=== PATIENT | female | born 1945 | race Caucasian/White ===

== ENCOUNTER 2021-04-28 02:25 | Emergency (ER) | payer MEDICARE ==
[~2021-04-28] VITALS: Ht 165.1 cm; Wt 68.0 kg
--- NOTE | 2021-04-28 02:35 | NUR ---
PATIENT [id number] FROM [facility] C/O TRIP AND FALL ON CARPETED HALLWAY. PATIENT DENIES LOC, C/O RIGHT SHOULDER PAIN. PATIENT IS A/O X 2, RR EVEN AND UNLABORED, NO SOB NOTED, PATIENT CONNECTED TO CARDIAC MONIOTR AND POX.
[2021-04-28] MEDS ORDERED: IBUPROFEN 600 MG TABLET ONE (02:53)
[2021-04-28] MEDS ORDERED: IBUPROFEN 200 MG TABLET ONE (02:53)
--- NOTE | 2021-04-28 02:58 | NUR ---
taken to ct
[2021-04-28] MEDS ORDERED: IBUPROFEN 400 MG TABLET PO ONE (03:00)
--- NOTE | 2021-04-28 03:41 | NUR ---
KARL, DAUGHTER [phone]
--- NOTE | 2021-04-28 04:28 | NUR ---
Patient discharged to home in stable condition. Written and verbal after care instructions given. Patient/daugther verbalizes understanding of instruction.
[2021-04-28 04:51] VITALS: BP 119/57
== END 2021-04-28 04:29 | disposition home or self-care (01) ==
LOC: ER 02:31
DX: S43.491A Other sprain of right shoulder joint, initial encounter (principal); G30.9 Alzheimer's disease, unspecified; F02.80 Dementia in other diseases classified elsewhere, unspecified severity, without behavioral disturbance, psychotic disturbance, mood disturbance, and anxiety; I10 Essential (primary) hypertension; E78.5 Hyperlipidemia, unspecified; W01.0XXA Fall on same level from slipping, tripping and stumbling without subsequent striking against object, initial encounter; Y93.89 Activity, other specified; Y92.89 Other specified places as the place of occurrence of the external cause; Y99.8 Other external cause status
CPT/HCPCS: 70450-TC; 72125-TC; 73030-TC

== ENCOUNTER 2021-12-19 12:51 | Emergency (ER) | payer MEDICARE, OTHER ==
[~2021-12-19] VITALS: Ht 165.1 cm; Wt 70.8 kg
--- NOTE | 2021-12-19 13:30 | NUR ---
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 On room air, breathing evenyl and unlabored. Kept comfortable, will continue to monitor accordingly.
[2021-12-19] MEDS ORDERED: CHOL100043 PO (13:37)
[2021-12-19] MEDS ORDERED: ACET325T53 PO (13:37)
[2021-12-19] MEDS ORDERED: MAGN400O6 PO (13:37)
[2021-12-19] MEDS ORDERED: LEVO112T7 PO (13:37)
[2021-12-19] MEDS ORDERED: MAG30ORA PO (13:37)
[2021-12-19] MEDS ORDERED: TRAZ-252 PO (13:37)
[2021-12-19] MEDS ORDERED: CYAN-51 PO (13:37)
[2021-12-19] MEDS ORDERED: BUPR-54 PO (13:37)
[2021-12-19] MEDS ORDERED: CLON0.5T4 PO (13:37)
[2021-12-19] MEDS ORDERED: ATOR10TA PO (13:37)
[2021-12-19] MEDS ORDERED: AMLO-213 PO (13:37)
[2021-12-19] MEDS ORDERED: ACET-868 PO (13:37)
[2021-12-19] MEDS ORDERED: TRAM50TA2 PO (13:37)
[2021-12-19] MEDS ORDERED: LORA-259 PO (13:37)
[2021-12-19] MEDS ORDERED: FLUO40CA49 PO (13:37)
[2021-12-19] MEDS ORDERED: OMEP20CA15 PO (13:37)
[2021-12-19] MEDS ORDERED: VALS320T16 PO (13:37)
[2021-12-19] MEDS ORDERED: LOPE-195 PO (13:37)
[2021-12-19] MEDS ORDERED: FOLI0.4T6 PO (13:37)
[2021-12-19] MEDS ORDERED: MEMA1CAP3 PO (13:37)
[2021-12-19] MEDS ORDERED: LIDO1ADH71 TP (13:37)
[2021-12-19 14:29] LABS: BILIRUBIN,URINE NEGATIVE (NEGATIVE); COLOR,URINE YELLOW (YELLOW); LEUKOCYTE ESTERASE ,URINE SMALL (NEGATIVE); NITRITE, URINE POSITIVE (NEGATIVE); PROTEIN,URINE NEGATIVE (NEGATIVE); UGLUCOSE NEGATIVE (NEGATIVE); UROBILINOGEN,URINE 0.2 EU/dL (0.2)
[2021-12-19] MEDS ORDERED: IV NS 0.9% 1,000 ML BAG IV ONE (14:30)
[2021-12-19 14:59] LABS: BASOPHILS % (AUTO) 0.4 % (0.0-2.0); EOSINOPHILS % (AUTO) 2.5 % (0.0-6.0); HEMATOCRIT 39 % (33-45); HEMOGLOBIN 13.2 g/dL (11.5-14.8); LYMPHOCYTES # (AUTO) 1.2 K/uL (0.8-4.8); LYMPHOCYTES % (AUTO) 18.8 % (20.0-44.0); MEAN CORPUSCULAR HGB CONC 34 g/dl (31.0-36.0); MEAN CORPUSCULAR VOLUME 94 fL (82-100); MONOCYTES # (AUTO) 0.5 K/uL (0.1-1.30); MONOCYTES % (AUTO) 7.6 % (2.0-12.0); NEUTROPHILS # (AUTO) 4.5 K/uL (1.8-8.9); NEUTROPHILS % (AUTO) 70.7 % (43.0-81.0); PLATELET COUNT (AUTO) 203 K/uL (150-450); RED BLOOD CELL COUNT(AUTO) 4.14 MIL/uL (4.0-5.2); WHITE BLOOD COUNT (AUTO) 6.4 K/uL (4.3-11.0)
[2021-12-19 15:14] LABS: RBC,URINE 21-50 /HPF (0-2)
[2021-12-19 15:15] LABS: BACTERIA,URINE 3+ /HPF (None Seen); SQUAMOUS EPITHELIAL CELL,UR 0-2 /HPF (None Seen)
[2021-12-19] MEDS ORDERED: CEFTRIAXONE 1GM BAG (ER ONLY) 1 GM/50 ML PIGGYBACK IV ONE (15:30)
[2021-12-19 15:32] LABS: ALANINE AMINOTRANSFERASE 17 U/L (12-78); ALBUMIN 3.4 g/dL (3.4-5.0); ALKALINE PHOSPHATASE 76 U/L (46-116); ASPARTATE AMINOTRANSFERASE 14 U/L (15-37); BILIRUBIN,DIRECT 0.1 mg/dL (0.0-0.2); BILIRUBIN,TOTAL 0.3 mg/dL (0.2-1.0); CALCIUM, SERUM 9.1 mg/dL (8.5-10.1); CARBON DIOXIDE 27 mmol/L (21-32); CHLORIDE 104 mmol/L (98-107); CREATININE 0.8 mg/dL (0.6-1.3); GLUCOSE 95 mg/dL (74-106); POTASSIUM 3.8 mmol/L (3.5-5.1); SODIUM SERUM 137 mmol/L (136-145); TOTAL PROTEIN, SERUM 6.2 g/dL (6.4-8.2); UREA NITROGEN, BLOOD 15 mg/dL (7-18)
[2021-12-19] MEDS ORDERED: CEFTRIAXONE 1GM BAG (ER ONLY) 50 ML IV ONE (15:34)
[2021-12-19] MEDS ORDERED: CEPH500C2 PO (16:09)
[2021-12-19 16:38] VITALS: BP 113/61
--- NOTE | 2021-12-19 16:38 | NUR ---
Patient discharged to [facility] in stable condition. Written and verbal after care instructions given. Patient daughter verbalizes understanding of instruction.IV removed. Catheter intact and site benign. Pressure and 4x4 applied to site. No bleeding noted.
[2021-12-19 19:25] LABS: THYROID STIMULATING HORMONE 0.326 uIU/mL (0.358-3.74)
== END 2021-12-19 16:38 | disposition home or self-care (01) ==
LOC: ER 12:55
DX: R53.1 Weakness (principal); N39.0 Urinary tract infection, site not specified; I12.9 Hypertensive chronic kidney disease with stage 1 through stage 4 chronic kidney disease, or unspecified chronic kidney disease; N18.9 Chronic kidney disease, unspecified; E78.5 Hyperlipidemia, unspecified; E03.9 Hypothyroidism, unspecified; F32.A Depression, unspecified; Z79.899 Other long term (current) drug therapy
CPT/HCPCS: 99285; 96365; 93971; 71045; 96361; 93005; 85025; 80048; 87077; 87086; 80076; 87186; 81001; 36415; 84443; 84484; J7030; A6403; J0696

== ENCOUNTER 2022-08-03 12:37 | Inpatient (IN) | payer MEDICARE, OTHER ==
[~2022-08-03] VITALS: Ht 165.1 cm; Wt 67.6 kg
[~2022-08-03 12:37] MED LIST: ACET-868 PO; ACET325T53 PO; AMLO-213 PO; ATOR10TA PO; BUPR-54 PO; CEPH500C2 PO; CHOL100043 PO; CLON0.5T4 PO; CYAN-51 PO; FLUO40CA49 PO; FOLI0.4T6 PO; LEVO112T7 PO; LIDO1ADH71 TP; LOPE-195 PO; LORA-259 PO; MAG30ORA PO; MAGN400O6 PO; MEMA1CAP3 PO; OMEP20CA15 PO; TRAM50TA2 PO; TRAZ-252 PO; VALS320T16 PO
[2022-08-03] MEDS ORDERED: ONDANSETRON HCL/PF 4 MG/2 ML VIAL ONE (13:25)
[2022-08-03] MEDS ORDERED: ONDANSETRON HCL/PF 4 MG/2 ML VIAL IVP ONE (13:30)
[2022-08-03] MEDS ORDERED: IV NS 0.9% 500 ML BAG IV ONE (13:30)
[2022-08-03 13:56] LABS: BASOPHILS % (AUTO) 0.1 % (0.0-2.0); EOSINOPHILS % (AUTO) 0.2 % (0.0-6.0); HEMATOCRIT 49 % (33-45); HEMOGLOBIN 16.1 g/dL (11.5-14.8); LYMPHOCYTES # (AUTO) 0.4 K/uL (0.8-4.8); LYMPHOCYTES % (AUTO) 2.4 % (20.0-44.0); MEAN CORPUSCULAR HGB CONC 33 g/dl (31.0-36.0); MEAN CORPUSCULAR VOLUME 95 fL (82-100); MONOCYTES # (AUTO) 0.6 K/uL (0.1-1.30); MONOCYTES % (AUTO) 4.3 % (2.0-12.0); NEUTROPHILS # (AUTO) 13.8 K/uL (1.8-8.9); PLATELET COUNT (AUTO) 234 K/uL (150-450); RED BLOOD CELL COUNT(AUTO) 5.21 MIL/uL (4.0-5.2); WHITE BLOOD COUNT (AUTO) 14.8 K/uL (4.3-11.0)
[2022-08-03 14:03] LABS: CALCIUM, SERUM 9.9 mg/dL (8.5-10.1); CARBON DIOXIDE 27 mmol/L (21-32); CHLORIDE 105 mmol/L (98-107); GLUCOSE 158 mg/dL (74-106); SODIUM SERUM 142 mmol/L (136-145); UREA NITROGEN, BLOOD 19 mg/dL (7-18)
[2022-08-03 14:08] LABS: ALANINE AMINOTRANSFERASE 15 U/L (12-78); ALBUMIN 4.5 g/dL (3.4-5.0); ALKALINE PHOSPHATASE 85 U/L (46-116); ASPARTATE AMINOTRANSFERASE 13 U/L (15-37); BILIRUBIN,DIRECT 0.3 mg/dL (0.0-0.2); LIPASE 52 U/L (73-393)
[2022-08-03 15:34] LABS: BILIRUBIN,URINE NEGATIVE (NEGATIVE); COLOR,URINE YELLOW (YELLOW); LEUKOCYTE ESTERASE ,URINE TRACE (NEGATIVE); NITRITE, URINE NEGATIVE (NEGATIVE); PH,URINE 5.5 (5.0-8.0); PROTEIN,URINE TRACE mg/dl (NEGATIVE); UGLUCOSE NEGATIVE (NEGATIVE); UROBILINOGEN,URINE 0.2 EU/dL (0.2)
[2022-08-03 16:11] LABS: BACTERIA,URINE 2+ /HPF (None Seen); RBC,URINE 51-80 /HPF (0-2)
[2022-08-03] MEDS ORDERED: PIPERACILLIN /TAZOBACTAM 3.375 G in IV D5W 50 ML IV ONE (16:30)
[2022-08-03] MEDS ORDERED: CELE100C PO (17:27)
[2022-08-03] MEDS ORDERED: KETO30CR TOP (17:27)
[2022-08-03] MEDS ORDERED: DIVA250T PO (17:27)
[2022-08-03] MEDS ORDERED: DIVA-78 PO (17:27)
[2022-08-03] MEDS ORDERED: LOPERAMIDE HCL (2 MG CAP) 2 MG CAPSULE PO PRN (18:00)
[2022-08-03] MEDS ORDERED: MAGNESIUM HYDROXIDE 30 ML UDC PO PRN (18:00)
[2022-08-03] MEDS ORDERED: TRAMADOL HCL 50 MG TABLET PO PRN (18:00)
[2022-08-03] MEDS ORDERED: ACETAMINOPHEN 325 MG TABLET PO PRN ×2 (18:00)
[2022-08-03] MEDS ORDERED: MAG HYDROX/AL HYDROX/SIMETH 30 ML UDC PO PRN (18:00)
[2022-08-03] MEDS ORDERED: ONDANSETRON HCL/PF 4 MG/2 ML VIAL IVP PRN (18:00)
[2022-08-03] MEDS ORDERED: IV NS 0.9% 1,000 ML BAG IV ONE (18:00)
[2022-08-03] MEDS ORDERED: Z GUARD REMEDY 4 OZ OINT TP PRN (18:00)
[2022-08-03] MEDS: ENOXAPARIN SODIUM 40 MG/0.4 ML DISP.SYRIN SQ SCH (18:30)
[2022-08-03] MEDS: IV NS 0.9% 1,000 ML IV PRN (19:59)
[2022-08-03 20:00] VITALS: BP 126/67
[2022-08-03] MEDS: TRAZODONE 50 MG TABLET PO SCH (21:13)
[2022-08-03] MEDS: ATORVASTATIN 10 MG TABLET PO SCH (21:14)
[2022-08-03 22:23] VITALS: BP 126/67
[2022-08-03] MEDS: ZOSYN IVPB 2.25 G in IV D5W 50ml IV SCH (23:34)
[2022-08-04] MEDS: ZOSYN IVPB 2.25 G in IV D5W 50ml IV SCH ×4 (05:34→23:47)
[2022-08-04] MEDS: LEVOTHYROXINE SODIUM 112 MCG TABLET PO SCH (08:13)
[2022-08-04] MEDS: PANTOPRAZOLE 40 MG TABLET.DR PO SCH (08:13)
[2022-08-04 08:37] VITALS: BP 109/56
[2022-08-04] MEDS: clonazePAM 0.5 MG TABLET PO SCH ×2 (08:53→17:06)
[2022-08-04] MEDS: FLUOXETINE HCL 20 MG CAPSULE PO SCH (08:53)
[2022-08-04] MEDS: CELECOXIB 100 MG CAPSULE PO SCH ×2 (08:53→17:06)
[2022-08-04] MEDS: DIVALPROEX SODIUM 125 MG TABLET.DR PO SCH ×2 (08:53→17:06)
[2022-08-04] MEDS: LIDOCAINE 5% (PATCH) 1 EA PATCH TP SCH ×3 (08:54→14:24)
[2022-08-04] MEDS ORDERED: DIVALPROEX SODIUM 500 MG TABLET.DR PO SCH (09:00)
[2022-08-04] MEDS: AMLODIPINE BESYLATE 10 MG TABLET PO SCH (09:02)
[2022-08-04] MEDS: MEMANTINE HCL 5 MG TABLET PO SCH ×2 (09:02→17:05)
[2022-08-04] MEDS: VALSARTAN 80 MG TABLET PO SCH (09:03)
[2022-08-04 09:42] LABS: BASOPHILS % (AUTO) 0.1 % (0.0-2.0); EOSINOPHILS % (AUTO) 0.8 % (0.0-6.0); HEMATOCRIT 42 % (33-45); HEMOGLOBIN 13.9 g/dL (11.5-14.8); LYMPHOCYTES # (AUTO) 0.6 K/uL (0.8-4.8); LYMPHOCYTES % (AUTO) 8.6 % (20.0-44.0); MEAN CORPUSCULAR HGB CONC 33 g/dl (31.0-36.0); MEAN CORPUSCULAR VOLUME 95 fL (82-100); MONOCYTES # (AUTO) 0.5 K/uL (0.1-1.30); NEUTROPHILS # (AUTO) 5.6 K/uL (1.8-8.9); NEUTROPHILS % (AUTO) 83.5 % (43.0-81.0); PLATELET COUNT (AUTO) 189 K/uL (150-450); RED BLOOD CELL COUNT(AUTO) 4.42 MIL/uL (4.0-5.2); WHITE BLOOD COUNT (AUTO) 6.7 K/uL (4.3-11.0)
[2022-08-04 10:13] LABS: CALCIUM, SERUM 8.9 mg/dL (8.5-10.1); CARBON DIOXIDE 29 mmol/L (21-32); CHLORIDE 109 mmol/L (98-107); CREATININE 0.9 mg/dL (0.6-1.3); GLUCOSE 93 mg/dL (74-106); PHOSPHORUS 2.9 mg/dL (2.5-4.9); POTASSIUM 3.4 mmol/L (3.5-5.1); SODIUM SERUM 143 mmol/L (136-145); UREA NITROGEN, BLOOD 12 mg/dL (7-18)
[2022-08-04] MEDS: IV NS 0.9% 1,000 ML IV PRN (14:25)
[2022-08-04] MEDS: ENOXAPARIN SODIUM 40 MG/0.4 ML DISP.SYRIN SQ SCH ×2 (17:07→17:29)
[2022-08-04 20:00] VITALS: BP 130/60
[2022-08-04] MEDS: TRAZODONE 50 MG TABLET PO SCH (21:01)
[2022-08-04] MEDS: ATORVASTATIN 10 MG TABLET PO SCH (21:02)
[2022-08-04] MEDS ORDERED: DONEPEZIL 5 MG TABLET PO SCH (22:00)
[2022-08-05] MEDS: ZOSYN IVPB 2.25 G in IV D5W 50ml IV SCH (05:30)
[2022-08-05] MEDS: IV NS 0.9% 1,000 ML IV PRN (05:36)
[2022-08-05 07:00] VITALS: BP 113/61
[2022-08-05] MEDS: PANTOPRAZOLE 40 MG TABLET.DR PO SCH (08:08)
[2022-08-05] MEDS: LEVOTHYROXINE SODIUM 112 MCG TABLET PO SCH (08:08)
[2022-08-05] MEDS: VALSARTAN 80 MG TABLET PO SCH (08:45)
[2022-08-05] MEDS: DIVALPROEX SODIUM 125 MG TABLET.DR PO SCH (08:45)
[2022-08-05] MEDS: LIDOCAINE 5% (PATCH) 1 EA PATCH TP SCH (08:45)
[2022-08-05 08:46] VITALS: BP 113/61
[2022-08-05] MEDS: FLUOXETINE HCL 20 MG CAPSULE PO SCH (08:46)
[2022-08-05] MEDS: MEMANTINE HCL 5 MG TABLET PO SCH (08:46)
[2022-08-05] MEDS: CELECOXIB 100 MG CAPSULE PO SCH (08:46)
[2022-08-05] MEDS: AMLODIPINE BESYLATE 10 MG TABLET PO SCH (08:46)
[2022-08-05] MEDS: clonazePAM 0.5 MG TABLET PO SCH (08:46)
[2022-08-05] MEDS ORDERED: LEVO500T90 PO (08:59)
== END 2022-08-05 11:22 | DRG 871 ==
LOC: ER 12:39 → TELE 18:23 → MED 20:00
PROVIDERS: ADMIT Internal Medicine; ATTEND Internal Medicine
DX: A41.9 Sepsis, unspecified organism (principal); G93.41 Metabolic encephalopathy; N17.0 Acute kidney failure with tubular necrosis; N39.0 Urinary tract infection, site not specified; F02.83 Dementia in other diseases classified elsewhere, unspecified severity, with mood disturbance; E87.20 Acidosis, unspecified; E03.9 Hypothyroidism, unspecified; E78.5 Hyperlipidemia, unspecified; G30.9 Alzheimer's disease, unspecified; I10 Essential (primary) hypertension; Z90.49 Acquired absence of other specified parts of digestive tract; Z20.822 Contact with and (suspected) exposure to COVID-19; F32.9 Major depressive disorder, single episode, unspecified; B96.20 Unspecified Escherichia coli [E. coli] as the cause of diseases classified elsewhere
CPT/HCPCS: 36415; 71045-TC; 80048-TC; 80076-TC; 81001; 82962-TC; 83605-TC; 83690-TC; 83735-TC; 84100-TC; 84484-TC; 85025-TC; 87040-TC; 87081-TC; 87086-TC; A4223; C9803; G0378; J1650; J2405; J2543; J7030; J7040; J7060

== ENCOUNTER 2022-10-11 13:45 | Emergency (ER) | payer MEDICARE, OTHER ==
[~2022-10-11] VITALS: Ht 165.1 cm; Wt 68.0 kg
[~2022-10-11 13:45] MED LIST changes: -BUPR-54 PO; +CELE100C PO; -CEPH500C2 PO; -CHOL100043 PO; -CYAN-51 PO; +DIVA-78 PO; +DIVA250T PO; -FOLI0.4T6 PO; +KETO30CR TOP; +LEVO500T90 PO; -LORA-259 PO
--- NOTE | 2022-10-11 13:58 | NUR ---
Dr Gill at for eval.
--- NOTE | 2022-10-11 14:26 | NUR ---
REFUSED CHEST X RAY
--- NOTE | 2022-10-11 14:30 | NUR ---
Pt AAOx3 at this time. Pt refusing IV line. Pt refusing chest xray. Dr. Gill made aware
[2022-10-11 14:36] LABS: BASOPHILS % (AUTO) 0.4 % (0.0-2.0); EOSINOPHILS % (AUTO) 2.8 % (0.0-6.0); HEMATOCRIT 41 % (33-45); HEMOGLOBIN 13.5 g/dL (11.5-14.8); LYMPHOCYTES # (AUTO) 1.6 K/uL (0.8-4.8); LYMPHOCYTES % (AUTO) 19.1 % (20.0-44.0); MEAN CORPUSCULAR HGB CONC 33 g/dl (31.0-36.0); MEAN CORPUSCULAR VOLUME 96 fL (82-100); MONOCYTES # (AUTO) 0.6 K/uL (0.1-1.30); MONOCYTES % (AUTO) 6.5 % (2.0-12.0); NEUTROPHILS # (AUTO) 6.1 K/uL (1.8-8.9); NEUTROPHILS % (AUTO) 71.2 % (43.0-81.0); PLATELET COUNT (AUTO) 203 K/uL (150-450); RED BLOOD CELL COUNT(AUTO) 4.28 MIL/uL (4.0-5.2); WHITE BLOOD COUNT (AUTO) 8.6 K/uL (4.3-11.0)
[2022-10-11 14:47] LABS: CALCIUM, SERUM 9.2 mg/dL (8.5-10.1); CARBON DIOXIDE 30 mmol/L (21-32); CHLORIDE 105 mmol/L (98-107); CREATININE 0.8 mg/dL (0.6-1.3); GLUCOSE 92 mg/dL (74-106); SODIUM SERUM 142 mmol/L (136-145); UREA NITROGEN, BLOOD 18 mg/dL (7-18)
[2022-10-11 15:00] LABS: ALANINE AMINOTRANSFERASE 15 U/L (12-78); ALBUMIN 3.6 g/dL (3.4-5.0); ALKALINE PHOSPHATASE 89 U/L (46-116); ASPARTATE AMINOTRANSFERASE 11 U/L (15-37); BILIRUBIN,DIRECT 0.1 mg/dL (0.0-0.2); BILIRUBIN,TOTAL 0.4 mg/dL (0.2-1.0); TOTAL PROTEIN, SERUM 6.7 g/dL (6.4-8.2)
--- NOTE | 2022-10-11 15:15 | NUR ---
CALLED [facility] FOR TRANSPORT ETA 45 MINS.
--- NOTE | 2022-10-11 15:23 | NUR ---
Reoprt given to Brenna harrington Muldoon
[2022-10-11 16:20] VITALS: BP 122/60
== END 2022-10-11 16:27 | disposition home or self-care (01) ==
LOC: ER 13:47
DX: R53.1 Weakness (principal); I12.9 Hypertensive chronic kidney disease with stage 1 through stage 4 chronic kidney disease, or unspecified chronic kidney disease; N18.9 Chronic kidney disease, unspecified; F02.80 Dementia in other diseases classified elsewhere, unspecified severity, without behavioral disturbance, psychotic disturbance, mood disturbance, and anxiety; G30.9 Alzheimer's disease, unspecified; F32.A Depression, unspecified; E78.5 Hyperlipidemia, unspecified; Z79.899 Other long term (current) drug therapy
CPT/HCPCS: 80048-TC; 80076-TC; 82962-TC; 83880; 84484-TC; 85025-TC

== ENCOUNTER 2023-08-14 10:58 | Emergency (ER) | payer MEDICARE, OTHER ==
[~2023-08-14] VITALS: Ht 154.9 cm; Wt 80.3 kg
[2023-08-14] MEDS ORDERED: TRAZ-257 PO (11:44)
[2023-08-14] MEDS ORDERED: HYDROCORTISONE CREAM TP (11:44)
[2023-08-14] MEDS ORDERED: MINE50OI TP (11:44)
[2023-08-14] MEDS ORDERED: DIVA125C5 PO ×2 (11:44)
[2023-08-14 11:48] LABS: BASOPHILS % (AUTO) 0.4 % (0.0-2.0); EOSINOPHILS # (AUTO) 0.6 K/uL (0.0-0.7); HEMATOCRIT 42 % (33-45); HEMOGLOBIN 14.3 g/dL (11.5-14.8); LYMPHOCYTES # (AUTO) 1.3 K/uL (0.8-4.8); MEAN CORPUSCULAR HEMOGLOBIN 31 PG (26.0-33.0); MEAN CORPUSCULAR HGB CONC 34 g/dl (31.0-36.0); MEAN CORPUSCULAR VOLUME 91 fL (82-100); MONOCYTES # (AUTO) 1.1 K/uL (0.1-1.30); MONOCYTES % (AUTO) 10.6 % (2.0-12.0); NEUTROPHILS # (AUTO) 7.1 K/uL (1.8-8.9); PLATELET COUNT (AUTO) 194 K/uL (150-450); RED BLOOD CELL COUNT(AUTO) 4.62 MIL/uL (4.0-5.2); RED CELL DISTRIBUTION WIDTH 14.3 % (11.5-15.0); WHITE BLOOD COUNT (AUTO) 10.1 K/uL (4.3-11.0)
[2023-08-14 12:06] LABS: CALCIUM, SERUM 8.9 mg/dL (8.5-10.1); CARBON DIOXIDE 28 mmol/L (21-32); CHLORIDE 103 mmol/L (98-107); CREATININE 0.8 mg/dL (0.6-1.3); GLUCOSE 81 mg/dL (74-106); POTASSIUM 3.9 mmol/L (3.5-5.1); SODIUM SERUM 140 mmol/L (136-145); UREA NITROGEN, BLOOD 8 mg/dL (7-18)
[2023-08-14] MEDS ORDERED: ALBUTEROL FS 2.5 MG/0.5 ML VIAL.NEB ONE (12:10)
[2023-08-14 12:15] VITALS: O2SAT 96
[2023-08-14 12:15] LABS: LACTIC ACID 1.2 mmol/L (0.4-2.0)
[2023-08-14] MEDS: ALBUTEROL FS 2.5 MG/0.5 ML VIAL.NEB NEB ONE (12:15)
[2023-08-14 12:26] VITALS: O2SAT 98
[2023-08-14 12:27] VITALS: O2SAT 98
[2023-08-14 13:54] VITALS: BP 128/77; TEMP 98.2; O2SAT 98
== END 2023-08-14 13:55 | disposition home or self-care (01) ==
LOC: ER 11:14
DX: R07.9 Chest pain, unspecified (principal); G30.9 Alzheimer's disease, unspecified; F02.80 Dementia in other diseases classified elsewhere, unspecified severity, without behavioral disturbance, psychotic disturbance, mood disturbance, and anxiety; I12.9 Hypertensive chronic kidney disease with stage 1 through stage 4 chronic kidney disease, or unspecified chronic kidney disease; N18.9 Chronic kidney disease, unspecified; E78.5 Hyperlipidemia, unspecified; F32.A Depression, unspecified; Z79.899 Other long term (current) drug therapy; Z20.822 Contact with and (suspected) exposure to COVID-19
CPT/HCPCS: 36415; 71045-TC; 80048-TC; 83605-TC; 84484-TC; 85025-TC; 87040-TC

== ENCOUNTER 2024-08-23 23:57 | Emergency (ER) | payer MEDICARE, OTHER ==
[~2024-08-23] VITALS: Ht 154.9 cm; Wt 79.8 kg
[~2024-08-23 23:57] MED LIST changes: -ACET-868 PO; -ACET325T53 PO; -CLON0.5T4 PO; -DIVA-78 PO; +DIVA125C5 PO; -DIVA250T PO; +HYDROCORTISONE CREAM TP; -KETO30CR TOP; -LEVO500T90 PO; -MAG30ORA PO; -MAGN400O6 PO; +MINE50OI TP; -TRAM50TA2 PO; -TRAZ-252 PO; +TRAZ-257 PO
[2024-08-24] MEDS ORDERED: TDAP [DIPH/PERTUSSIS/TET] 0.5 ML VIAL IM ONE (00:44)
[2024-08-24] MEDS: TDAP [DIPH/PERTUSSIS/TET] 0.5 ML VIAL IM ONE (00:59)
[2024-08-24 02:05] VITALS: BP 140/80; TEMP 98; O2SAT 99
== END 2024-08-24 | disposition home or self-care (01) ==
LOC: ER 08-24 00:05
DX: S01.01XA Laceration without foreign body of scalp, initial encounter (principal); S13.4XXA Sprain of ligaments of cervical spine, initial encounter; I12.9 Hypertensive chronic kidney disease with stage 1 through stage 4 chronic kidney disease, or unspecified chronic kidney disease; N18.9 Chronic kidney disease, unspecified; F02.83 Dementia in other diseases classified elsewhere, unspecified severity, with mood disturbance; E78.5 Hyperlipidemia, unspecified; F32.A Depression, unspecified; G30.9 Alzheimer's disease, unspecified; Z79.899 Other long term (current) drug therapy; W17.89XA Other fall from one level to another, initial encounter; Y93.89 Activity, other specified; Y92.89 Other specified places as the place of occurrence of the external cause; Y99.8 Other external cause status
CPT/HCPCS: 70450-TC; 70486-TC; 72125-TC; 90715